=== PATIENT | female | born 1935 | race Caucasian/White ===

== ENCOUNTER 2018-06-11 12:31 | Emergency (ER) | payer MEDICARE ==
[~2018-06-11] VITALS: Ht 162.6 cm; Wt 85.7 kg
[2018-06-11 12:31] VITALS: BP_SYST 151
[2018-06-11] MEDS ORDERED: IPRATROPIUM/ALBUTEROL SULFATE 3 ML AMPUL.NEB INH ONE (12:45)
[2018-06-11] MEDS ORDERED: NACL 0.9% 1,000 ML IV ONE (12:45)
[2018-06-11 13:21] LABS: ANION GAP 6 (5-15); CALCIUM 9.1 mg/dL (8.4-11.0); CHLORIDE 102 mmol/L (98-107); CREATININE 1.16 mg/dL (0.55-1.30); GLUCOSE 118 mg/dL (70-99); POTASSIUM 4.3 mmol/L (3.5-5.1); SODIUM SERUM 137 mmol/L (136-145); UREA NITROGEN, BLOOD 24 mg/dL (8-21)
[2018-06-11 13:30] LABS: ALANINE AMINOTRANSFERASE 22 U/L (12-78); ALBUMIN 3.1 g/dL (3.4-4.8); ASPARTATE AMINOTRANSFERASE 22 U/L (10-37); TOTAL BILIRUBIN 0.2 mg/dL (0.0-1.0)
[2018-06-11 13:31] LABS: BILIRUBIN,URINE NEGATIVE (NEGATIVE); CLARITY/URINE CLEAR (CLEAR); COLOR,URINE YELLOW (YELLOW); GLUCOSE,URINE NEGATIVE (NEGATIVE); KETONES,URINE NEGATIVE (NEGATIVE); LEUKOCYTE ESTERASE ,URINE 1+ (NEGATIVE); NITRITE, URINE NEGATIVE (NEGATIVE); PROTEIN URINE 1+ (NEGATIVE); UROBILINOGEN,URINE 0.2 (0.2-1.0)
[2018-06-11 13:41] LABS: BLOOD, URINE TRACE (NEGATIVE)
[2018-06-11 13:47] LABS: BASOPHILS % (AUTO) 0.4 % (0.0-2.0); EOSINOPHILS # (AUTO) 0.2 K/uL (0.0-0.4); EOSINOPHILS % (AUTO) 2.8 % (0.0-4.0); HEMATOCRIT 28.7 % (36-48); HEMOGLOBIN 9.3 g/dL (12.0-16.0); LYMPHOCYTES # (AUTO) 0.8 K/uL (1.0-5.5); LYMPHOCYTES % (AUTO) 11.8 % (20.5-51.5); MEAN CORPUSCULAR HEMOGLOBIN 27 pg (27-31); MEAN CORPUSCULAR HGB CONC 32 % (32-36); MEAN CORPUSCULAR VOLUME 84 fL (79.0-98.0); MONOCYTES # (AUTO) 0.5 K/uL (0.0-1.0); MONOCYTES % (AUTO) 6.8 % (1.7-9.3); NEUTROPHILS # (AUTO) 5.5 K/uL (1.8-7.7); NEUTROPHILS % (AUTO) 78.2 % (40.0-70.0); PLATELET COUNT (AUTO) 197 K/uL (130-430); RED BLOOD CELL COUNT(AUTO) 3.43 MIL/uL (4.2-6.2); RED CELL DISTRIBUTION WIDTH 13.1 % (9.0-15.0)
[2018-06-11 14:15] LABS: BACTERIA,URINE FEW /HPF (None Seen)
[2018-06-11] MEDS ORDERED: DEXTROSE 50% JECT 50 ML DISP.SYRIN IVP ONE (14:15)
[2018-06-11] MEDS ORDERED: VITD2000 PO (14:15)
[2018-06-11] MEDS ORDERED: ASPI-1063 PO (14:15)
[2018-06-11] MEDS ORDERED: LIP40 PO (14:15)
[2018-06-11] MEDS ORDERED: BUPR75TA20 PO (14:15)
[2018-06-11] MEDS ORDERED: ATEN100T44 PO (14:15)
[2018-06-11] MEDS ORDERED: HYDR-3608 PO (14:15)
[2018-06-11] MEDS ORDERED: ISOS30TA6 PO (14:15)
[2018-06-11] MEDS ORDERED: LISI-209 PO (14:15)
[2018-06-11] MEDS ORDERED: SERT100T PO (14:15)
[2018-06-11 14:16] LABS: MUCUS,URINE 1+ /LPF (None Seen)
[2018-06-11] MEDS ORDERED: INSU100V32 SUBCUT ×2 (14:22)
[2018-06-11] MEDS ORDERED: OXYB5TAB11 PO (14:22)
[2018-06-11 15:00] VITALS: BP_SYST 138
== END 2018-06-11 15:00 | disposition home or self-care (01) ==
LOC: SED 12:31
DX: E86.0 Dehydration (principal); E11.649 Type 2 diabetes mellitus with hypoglycemia without coma; D64.9 Anemia, unspecified; I10 Essential (primary) hypertension; Z79.82 Long term (current) use of aspirin; Z79.4 Long term (current) use of insulin; Z79.899 Other long term (current) drug therapy
CPT/HCPCS: 36415; 71045; 80053; 81000; 84484; 85025; 87086; 93005; 94640; 96360; 99285; J7030; J7620